=== PATIENT | female | born 1995 ===

== ENCOUNTER 2019-12-17 09:59 | Outpatient (REF) | payer BC, SELFPAY ==
[2019-12-22 13:15] LABS: SARS-CoV-2 RNA Undetected (Undetected); SARS-CoV-2 Specimen Source Nasal
== END 2019-12-17 10:19 ==
LOC: NCHCN 09:59
PROVIDERS: PCP Internal Medicine; Visit Provider Internal Medicine
DX: Z20.828 Contact with and (suspected) exposure to other viral communicable diseases (principal); R51.9 Headache, unspecified; R19.7 Diarrhea, unspecified; R59.0 Localized enlarged lymph nodes
CPT/HCPCS: U0003